=== PATIENT | female | born 1980 | race Caucasian/White ===

== ENCOUNTER 2022-02-04 08:55 | Outpatient (CLI) | payer OTHER | END 2022-02-04 08:56 | disposition home or self-care (01) | LOC: BICMAMMO 08:55 | PROVIDERS: ATTEND Nurse Practitioner Family | DX: N63.10 Unspecified lump in the right breast, unspecified quadrant (principal) | CPT/HCPCS: 77066; G0279 ==

== ENCOUNTER 2022-03-06 07:04 | Inpatient (IN) | payer OTHER ==
[2022-03-06] MEDS ORDERED: CEFAZOLIN 1 GM VIAL ONE (08:05)
[2022-03-06] MEDS ORDERED: Boostrix 0.5 ML (Tdap) VIAL (>/=7 yrs of age) ONE (08:05)
[2022-03-06] MEDS ORDERED: Ondansetron PF 4 MG/2 ML Vial ONE ×2 (08:05→09:33)
[2022-03-06 08:11] LABS: Hemoglobin 13.3 g/dL (12.0-16.0); Mean Corpuscular HGB CONC 34.2 g/dL (32.0-36.0); Mean Corpuscular Hemoglobin 31.8 pg (27.0-31.0); RBC Distribution Width 11.8 % (11.5-14.5); Red Blood Cell (RBC) Count 4.17 mill/uL (4.20-5.40)
[2022-03-06 08:28] LABS: ALT (SGPT) 9 U/L (8-55); AST (SGOT) 17 U/L (5-34); Albumin 4.2 g/dL (3.5-5.0); Alkaline Phosphatase 47 U/L (40-110); Anion Gap 16 mmol/L (10-20); BUN (Urea Nitrogen) 10 mg/dL (7.0-18.7); Bilirubin, Total 0.9 mg/dL (0.2-1.2); Calc. Creatinine Clearance 0 mL/min (70-130); Calcium 8.9 mg/dL (7.8-10.44); Carbon Dioxide 21 mmol/L (22-29); Chloride 106 mmol/L (98-107); Estimated GFR 102; Globulin 2.3 g/dL (2.4-3.5); Glucose 232 mg/dL (70-105); Potassium 3.1 mmol/L (3.5-5.1); Protein, Total 6.5 g/dL (6.0-8.3); Sodium 140 mmol/L (136-145)
[2022-03-06] MEDS ORDERED: Lidocaine 1% w/Epinephrine 1:100K 20 ML VIAL ONE (08:47)
[2022-03-06] MEDS ORDERED: Lidocaine 1% PF 5 ML VIAL ONE (08:47)
[2022-03-06 08:51] LABS: Band 4 % (5-11); Lymphocytes 14 % (21-51); MDiff Complete? YES; Mean Platelet Volume 8.2 fL (7.4-10.4); Monocytes 6 % (0-10); Neutrophil 76 % (42-75); Platelet Count 306 10x3/uL (130-400); Platelet Morphology Comment Appears Adequate
[2022-03-06 09:28] LABS: PTT 27.5 sec (22.9-36.1); Prothrombin Time 13.4 sec (12.0-14.7)
[2022-03-06] MEDS ORDERED: Fentanyl 100 MCG/2 ML VIAL ONE (09:33)
[2022-03-06] MEDS ORDERED: Ipratropium/Albuterol 3 ML NEB NEB PRN (09:50)
[2022-03-06] MEDS ORDERED: Ondansetron PF 4 MG/2 ML Vial IVP PRN (09:50)
[2022-03-06] MEDS ORDERED: Dextrose 50% Abboject 50 ML SYRINGE SLOW IVP PRN (09:50)
[2022-03-06] MEDS ORDERED: Insulin Regular 300 UNITS/3 ML VIAL SC PRN (09:50)
[2022-03-06] MEDS ORDERED: Dextrose 5% in Water 1,000 ML IV PRN (09:50)
[2022-03-06] MEDS ORDERED: TETANUS, DIPHTHERIA TOX,ADULT (TDVAX) 0.5 ML VIAL IM ONE (09:50)
[2022-03-06] MEDS ORDERED: Bacitracin 1 PK ONE (09:54)
[2022-03-06 12:54] LABS: Acetaminophen Less than 10.0 mcg/mL (10.0-30.0); Alcohol Less than 10 mg/dL (Less than 10); Salicylate Less than 8.0 mg/dL (15.0-30.0)
[2022-03-06] MEDS ORDERED: Magnesium 2 GM/50 ML(in water) 2 GM in Premix Bag 1 BAG IVPB SCH (13:00)
[2022-03-06] MEDS: Sodium Chloride 0.9% 1,000 ML IV SCH ×2 (13:20→19:03)
[2022-03-06] MEDS: Acetaminophen 500 MG TAB PO SCH ×3 (13:27→23:05)
[2022-03-06] MEDS ORDERED: Potassium Phosphate 30 MMOL in Sodium Chloride 0.9% 250 ML 250 ML IVPB SCH (14:00)
[2022-03-06] MEDS ORDERED: CEFAZOLIN 2 GM in Sodium Chloride 0.9% 100 ML IVPB SCH (14:00)
[2022-03-06] MEDS ORDERED: FLU VACC QS2022-23(6MOS UP)/PF 60 MCG/0.5 ML SYRINGE IM ONE (14:45)
[2022-03-06] MEDS: Morphine 2 MG/ML VIAL SLOW IVP PRN (15:50)
[2022-03-06 16:16] LABS: SARS-CoV-2 NAA Rapid Test Not Detected (NotDetected)
[2022-03-06] MEDS: Cephalexin 250 MG CAP PO SCH ×2 (18:03→23:10)
[2022-03-06] MEDS: Famotidine 20 MG TAB PO SCH (21:10)
[2022-03-06 21:30] LABS: Glucose 103 mg/dL (70-105)
[2022-03-07] MEDS: Morphine 2 MG/ML VIAL SLOW IVP PRN ×3 (02:21→10:49)
[2022-03-07] MEDS: Sodium Chloride 0.9% 1,000 ML IV SCH ×2 (03:18→11:55)
[2022-03-07 04:26] LABS: #Lymphocytes 1.5 thou/uL (1.20-3.40); #Monocytes 0.8 thou/uL (0.11-0.59); #Neutrophils 9.3 thou/uL (1.40-6.50); %Basophils 0.3 % (0.0-1.0); %Eosinophils 0.1 % (0.0-10.0); %Lymphocytes 12.9 % (21.0-51.0); %Neutrophils 79.7 % (42.0-75.0); Hemoglobin 12.6 g/dL (12.0-16.0); Mean Corpuscular Volume 94.1 fl (78.0-98.0); Mean Platelet Volume 8.4 fL (7.4-10.4); Platelet Count 205 10x3/uL (130-400); Red Blood Cell (RBC) Count 3.93 mill/uL (4.20-5.40); White Blood Cell (WBC) Count 11.7 10x3/uL (4.8-10.8)
[2022-03-07 04:38] LABS: Anion Gap 14 mmol/L (10-20); BUN (Urea Nitrogen) 7 mg/dL (7.0-18.7); Calc. Creatinine Clearance 49 mL/min (70-130); Carbon Dioxide 19 mmol/L (22-29); Chloride 112 mmol/L (98-107); Estimated GFR 115; Glucose 90 mg/dL (70-105); Magnesium 1.9 mg/dL (1.6-2.6); Potassium 3.9 mmol/L (3.5-5.1); Sodium 141 mmol/L (136-145)
[2022-03-07 04:39] LABS: Phosphorus 3.1 mg/dL (2.3-4.7)
[2022-03-07] MEDS: Acetaminophen 500 MG TAB PO SCH ×2 (05:14→11:36)
[2022-03-07] MEDS: Cephalexin 250 MG CAP PO SCH ×2 (05:15→11:36)
[2022-03-07] MEDS: Famotidine 20 MG TAB PO SCH (08:17)
[2022-03-07] MEDS ORDERED: Scopolamine 1.5 mg/72 hour Patch TD SCH (12:00)
[2022-03-07 13:24] VITALS: TEMP 97.8
[2022-03-07 13:25] VITALS: BP 111/64
[2022-03-07] MEDS ORDERED: Mirtazapine 15 MG TAB PO SCH (21:00)
[2022-03-07] MEDS ORDERED: OLANZapine 5 MG TAB PO SCH (21:00)
[2022-03-08] MEDS ORDERED: FLUoxetine HCl 10 MG CAP PO SCH (09:00)
== END 2022-03-07 14:05 | DRG 84 ==
LOC: ERS 07:04 → ERHOLD 09:53 → EEVIPCON 09:53 → CCU 12:54
PROVIDERS: ADMIT Surgery; ATTEND Surgery
PROC: 0HQ0XZZ Repair Scalp Skin, External Approach (ICD-10-PCS; principal; 2022-03-06)
DX: S06.6X9A Traumatic subarachnoid hemorrhage with loss of consciousness of unspecified duration, initial encounter (principal); S02.119A Unspecified fracture of occiput, initial encounter for closed fracture; S01.01XA Laceration without foreign body of scalp, initial encounter; G93.89 Other specified disorders of brain; I10 Essential (primary) hypertension; F41.8 Other specified anxiety disorders; F43.10 Post-traumatic stress disorder, unspecified; F20.9 Schizophrenia, unspecified; Z20.822 Contact with and (suspected) exposure to COVID-19; S06.5X9A Traumatic subdural hemorrhage with loss of consciousness of unspecified duration, initial encounter; C50.919 Malignant neoplasm of unspecified site of unspecified female breast; W18.30XA Fall on same level, unspecified, initial encounter; Z98.890 Other specified postprocedural states; Z79.899 Other long term (current) drug therapy; R40.2413 Glasgow coma scale score 13-15, at hospital admission
CPT/HCPCS: 12004; 36415; 70450; 71045; 72125; 80048; 80053; 80307; 83735; 84100; 84146; 84484; 85025; 85610; 85730; 90471; 90715; 93005; 93880; 96365; 96375; G0390; J0690; J2272; J2405; J3010; J3475; J3490; J7050

== ENCOUNTER 2022-03-30 09:06 | Day surgery (SDC) | payer OTHER ==
[2022-03-26 12:42] VITALS: BMI 20.4
[2022-03-30] MEDS ORDERED: Ketorolac Tromethamine 30 MG/ML VIAL ONE (09:23)
[2022-03-30] MEDS ORDERED: Acetaminophen 500 MG TAB ONE (09:23)
[2022-03-30] MEDS ORDERED: CEFAZOLIN 2 GM VIAL ONE (09:24)
[2022-03-30] MEDS ORDERED: Sodium Chloride 0.9% 100 ML ONE (09:25)
[2022-03-30] MEDS ORDERED: Bupivacaine/Epinephrine 0.25% 30 ML VIAL ONE (12:08)
[2022-03-30] MEDS ORDERED: Lidocaine 1% (PF) 30 ML VIAL ONE (12:08)
[2022-03-30] MEDS ORDERED: Midazolam HCl 2 mg/2 ml Vial ONE (12:17)
[2022-03-30] MEDS ORDERED: fentaNYL PF 100 MCG/2 ML SYRINGE ONE (12:17)
[2022-03-30] MEDS ORDERED: Propofol 500 MG/50 ML VIAL ONE (12:18)
[2022-03-30] MEDS ORDERED: Lidocaine 2% PF 5 ML VIAL ONE (12:25)
== END 2022-03-30 14:19 ==
LOC: SDC 09:06
PROVIDERS: ATTEND Specialist
PROC: 02HV33Z Insertion of Infusion Device into Superior Vena Cava, Percutaneous Approach (ICD-10-PCS; principal; 2022-03-30)
PROC: 0JH60WZ Insertion of Totally Implantable Vascular Access Device into Chest Subcutaneous Tissue and Fascia, Open Approach (ICD-10-PCS; principal; 2022-03-30)
DX: C50.811 Malignant neoplasm of overlapping sites of right female breast (principal); G40.909 Epilepsy, unspecified, not intractable, without status epilepticus; F17.200 Nicotine dependence, unspecified, uncomplicated; Z17.0 Estrogen receptor positive status [ER+]; Z79.899 Other long term (current) drug therapy
CPT/HCPCS: 71045; C1788; J1642; J1885; J2001; J2250; J2704; J3490